=== PATIENT | female | born 2000 | race Caucasian/White ===

== ENCOUNTER 2024-02-14 19:07 | Emergency (ER) | payer OTHER ==
[~2024-02-14] VITALS: Ht 157.5 cm; Wt 91.6 kg
[2024-02-14 19:18] VITALS: BP 120/62; PULSE 70; RESP 18; TEMP 97.8; O2SAT 97
[2024-02-14 20:06] LABS: APPEARANCE,URINE CLEAR (CLEAR); BILIRUBIN,URINE NEGATIVE (NEGATIVE); BLOOD, URINE NEGATIVE (NEGATIVE); COLOR,URINE YELLOW (YELLOW); LEUKOCYTE ESTERASE ,URINE NEGATIVE (NEGATIVE); NITRITE, URINE NEGATIVE (NEGATIVE); PH,URINE 8.5 (5.0-9.0); PROTEIN,URINE NEGATIVE (NEGATIVE); UGLUCOSE NEGATIVE (NEGATIVE)
[2024-02-14] MEDS: KETOROLAC 60 MG/2 ML VIAL IM ONE (20:08)
[2024-02-14] MEDS: ONDANSETRON 4 MG ODT PO ONE (20:08)
[2024-02-14] MEDS ORDERED: IBUP-2213 PO (20:46)
[2024-02-14] MEDS ORDERED: ACET-8905 PO (20:46)
[2024-02-14] MEDS ORDERED: ONDA8TAB87 PO (20:46)
[2024-02-14 20:56] VITALS: BP 130/89; PULSE 76; RESP 16; TEMP 98.1; O2SAT 96
== END 2024-02-14 20:56 | disposition home or self-care (01) ==
LOC: MED 19:07
DX: R10.30 Lower abdominal pain, unspecified (principal); R11.2 Nausea with vomiting, unspecified; R42 Dizziness and giddiness; J45.909 Unspecified asthma, uncomplicated
CPT/HCPCS: 81003; 81025; 96372; 99283; J1885; Q0162